=== PATIENT | male | born 1980 | race Caucasian/White ===

== ENCOUNTER 2020-07-05 01:23 | Inpatient (IN) | payer SELFPAY ==
[2020-07-05] MEDS ORDERED: VANCOMYCIN HCL INJ 1000 MG VIAL IV ONE (02:18)
[2020-07-05] MEDS ORDERED: CEFTRIAXONE 1 GM/D5W RTU 1 GM/50 ML RTUPB IV ONE (02:18)
[2020-07-05] MEDS ORDERED: MORPHINE SULFATE 10 MG/ML INJ IV ONE (02:21)
--- NOTE | 2020-07-05 02:35 | ER Document Report ---
ED General - General Chief Complaint: Hand Swelling Stated Complaint: SWOLLEN LEFT HAND Time Seen by Provider: 07/05/20 01:58 - HPI Notes: Patient is a 40-year-old male with no medical history who presents with left hand swelling that began 2 days ago. Patient reports swelling, redness and pressure-like pain to his left hand extending to his left midforearm. Patient denies any injury or wounds to his hand, except for a small scratch that he received from a screw last week. Patient denies fever, headache, chest pain, shortness of breath, nausea, vomiting, abdominal pain. Patient is a everyday smoker and smokes about 4 to 5 cigarettes a day. He denies alcohol and recreational drug use. - Related Data Allergies/Adverse Reactions: No Known Allergies Allergy (Unverified 08/10/11 15:28) Past Medical History - General Information source: Patient - Social History Smoking Status: Current Every Day Smoker Cigarette use (# per day): Yes - 4-5 Chew tobacco use (# tins/day): Yes Frequency of alcohol use: None Drug Abuse: None Family History: Reviewed & Not Pertinent Patient has homicidal ideation: No Past Surgical History: Reports: Hx Orthopedic Surgery - right tib/fib jasson - Immunizations Hx Diphtheria, Pertussis, Tetanus Vaccination: No - unknown Review of Systems - Review of Systems Constitutional: No symptoms reported EENT: No symptoms reported Cardiovascular: No symptoms reported Respiratory: No symptoms reported Gastrointestinal: No symptoms reported Genitourinary: No symptoms reported Male Genitourinary: No symptoms reported Musculoskeletal: See HPI Skin: No symptoms reported Hematologic/Lymphatic: No symptoms reported Neurological/Psychological: No symptoms reported Physical Exam - Vital signs Vitals: Temp Pulse Resp BP Pulse Ox 98.6 F 110 H 18 150/91 H 96 07/05/20 01:28 07/05/20 01:28 07/05/20 01:28 07/05/20 01:28 07/05/20 01:28 - Notes Notes: PHYSICAL EXAMINATION: VITALS: Vitals reviewed and within normal limits. GENERAL: Well-appearing, well-nourished and in no acute distress. HEAD: Atraumatic, normocephalic. EYES: Pupils equal, round, and reactive to light, extraocular movements intact, sclera anicteric, conjunctiva are normal. ENT: Nares patent. Moist mucous membranes. Oropharynx clear without exudates. NECK: Normal range of motion, supple without lymphadenopathy. LUNGS: Breath sounds clear to auscultation bilaterally and equal. No wheezes rales or rhonchi. HEART: Regular, rate, and rhythm without murmurs. ABDOMEN: Soft, nontender, normoactive bowel sounds. No guarding, no rebound. No masses appreciated. EXTREMITIES: Significant swelling and erythema to the entire left hand. Edema extending to the mid forearm. Warmth noted. Range of motion of the fingers and wrist are limited due to the swelling, but able to minimally extend and flex fi ngers. No drainage or weeping noted. No area of fluctuance noted. Normal range of motion, no pitting or edema to all other extremities. No cyanosis. NEUROLOGICAL: No focal neurological deficits. Moves all extremities spontaneously and on command. PSYCH: Normal mood, normal affect. SKIN: Warm, Dry, normal turgor, no rashes or lesions noted. Course - Re-evaluation Re-evalutation: Patient is a 40-year-old who presents with left hand pain, swelling and redness for the last 2 days. Patient is tachycardic but vitals are otherwise unremarkable. On exam, significantly erythematous and edematous left hand with minimal range of motion the fingers and wrist. Warmth noted. 2000 mg IV vancomycin started as well as 1 g IV ceftriaxone here in the ED. Left hand XR shows soft tissue edema while the left forearm XR shows dorsal soft tissue edema. WBC is elevated at 11.8. UA shows elevated protein at 30 and elevated urobilinogen at 4. AST elevated at 96 and ALT elevated at 209. 07/05/20 04:22 I called the hospital cellophane bag machine operator to page Dr. Soto who is on-call for Ortho. 07/05/20 04:[address] Soto concerning the patient and he recommends admitting the patient through the hospitalist for IV antibiotic treatment. He will consult on the patient. 07/05/20 04:[address] Goodwin, hospitalist and he agreed to accept the patient. Patient will be admitted for observation to the medical floor. - Vital Signs Vital signs: Temp Pulse Resp BP Pulse Ox 98.2 F 101 H 18 145/89 H 100 07/05/20 05:40 07/05/20 05:40 07/05/20 05:40 07/05/20 05:40 07/05/20 05:40 - Laboratory Result Diagrams: 07/05/20 02:38 07/05/20 02:38 Laboratory results interpreted by me: 07/05/20 07/05/20 07/05/20 02:38 02:38 03:30 WBC 11.8 H Absolute Neuts (auto) 8.3 H Sodium 136.1 L Carbon Dioxide 31 H Glucose 135 H Direct Bilirubin 0.5 H AST 96 H ALT 209 H Urine Protein 30 H Urine Urobilinogen 4.0 H Discharge - Discharge Clinical Impression: Cellulitis of hand, Left hand pain Condition: Stable Disposition: ADMITTED OBSERVATION Admitting Provider: Buddy (Hospitalist) Unit Admitted: Medical Floor
[2020-07-05 03:04] LABS: ABSOLUTE BASOPHILS # (AUTO) 0.1 10^3/uL (0.0-0.2); ABSOLUTE EOSINOPHILS # (AUTO) 0.2 10^3/uL (0.0-0.6); ABSOLUTE LYMPHOCYTES (AUTO) 2.2 10^3/uL (0.5-4.7); ABSOLUTE NEUT (AUTO) 8.3 10^3/uL (1.7-8.2); BASOPHILS % (AUTO) 0.5 % (0-2); EOSINOPHILS % (AUTO) 2.1 % (0-6); HEMATOCRIT 39.5 % (37.9-51.0); HEMOGLOBIN 13.7 g/dL (13.5-17.0); LYMPHOCYTES % (AUTO) 18.4 % (13-45); MEAN CORPUSCULAR HEMOGLOBIN 28.7 pg (27.0-33.4); MEAN CORPUSCULAR HGB CONC 34.8 g/dL (32.0-36.0); MEAN CORPUSCULAR VOLUME 82 fl (80-97); MONOCYTES % (AUTO) 8.4 % (3-13); PLATELET COUNT 250 10^3/uL (150-450); RED BLOOD COUNT 4.79 10^6/uL (4.35-5.55); RED CELL DISTRIBUTION WIDTH 13.7 % (11.5-14.0); SEGMENTED NEUTROPHILS % (AUTO) 70.6 % (42-78); TOTAL CELLS COUNTED % (AUTO) 100 %; WHITE BLOOD COUNT 11.8 10^3/uL (4.0-10.5)
--- NOTE | 2020-07-05 03:10 | RADIOLOGY REPORT (SQ) ---
EXAM DESCRIPTION: XR FOREARM 2 VIEWS COMPLETED DATE/TME: 07/05/2020 02:16 CLINICAL HISTORY: 40 years, Male, hand swelling, FB COMPARISON: None. FINDINGS: 2 views of the left forearm. No acute fracture or dislocation. Normal osseous mineralization. Dorsal soft tissue edema. No radiopaque foreign body. IMPRESSION: 1. No radiopaque foreign body identified. copyright 2010 [employer] All Rights Reserved
--- NOTE | 2020-07-05 03:11 | RADIOLOGY REPORT (SQ) ---
EXAM DESCRIPTION: XR HAND 1-2 VIEWS COMPLETED DATE/TME: 07/05/2020 02:16 CLINICAL HISTORY: 40 years, Male, hand swelling, FB COMPARISON: None. FINDINGS: 2 views of the left hand. Soft tissue edema. No radiopaque foreign body. No acute fracture. IMPRESSION: 1. No radiopaque foreign body. copyright 2010 [employer]- All Rights Reserved
[2020-07-05 04:00] LABS: APPEARANCE,URINE CLEAR; BILIRUBIN,URINE NEGATIVE (NEGATIVE); GLUCOSE, URINE NEGATIVE (NEGATIVE); KETONES,URINE NEGATIVE (NEGATIVE); LEUKOCYTE ESTERASE,URINE NEGATIVE (NEGATIVE); NITRITE,URINE NEGATIVE (NEGATIVE); PROTEIN,URINE 30 mg/dL (NEGATIVE); URINE SPECIFIC GRAVITY 1.028
[2020-07-05 04:01] LABS: COLOR,URINE YELLOW
[2020-07-05 04:10] LABS: ALBUMIN 4.2 g/dL (3.5-5.0); ALKALINE PHOSPHATASE 62 U/L (38-126); ANION GAP 6 (5-19); ASPARTATE AMINO TRANSFERASE 96 U/L (17-59); BILIRUBIN,DIRECT 0.5 mg/dL (0.0-0.4); BILIRUBIN,TOTAL 1.1 mg/dL (0.2-1.3); BLOOD UREA NITROGEN 15 mg/dL (7-20); CALCIUM 9.3 mg/dL (8.4-10.2); CARBON DIOXIDE 31 mmol/L (22-30); CHLORIDE 99 mmol/L (98-107); GLUCOSE 135 mg/dL (75-110); POTASSIUM 4.1 mmol/L (3.6-5.0); TOTAL PROTEIN 7.8 g/dL (6.3-8.2)
[2020-07-05] MEDS ORDERED: MAG HYDROX/AL HYDROX/SIMETH SUSP 30 ML UDCUP PO PRN (05:16)
[2020-07-05] MEDS ORDERED: LORAZEPAM INJ 2 MG/1 ML VIAL IV PRN (05:19)
[2020-07-05] MEDS ORDERED: GUAIFENESIN SYRP 200 MG/10 ML UDC PO PRN (05:19)
[2020-07-05] MEDS ORDERED: MORPHINE SULFATE 10 MG/ML INJ IV PRN (05:19)
[2020-07-05] MEDS ORDERED: MELATONIN 5 MG TABLET PO PRN (05:19)
[2020-07-05] MEDS ORDERED: ACETAMINOPHEN 325 MG TABLET PO PRN (05:19)
[2020-07-05] MEDS: HEPARIN SOD (PORCINE) 5,000 UNIT/ML 1 ML VIAL SUBCUT SCH ×3 (06:04→21:21)
[2020-07-05] MEDS: CEFEPIME 1 GM/D5W RTU 1 GM/50 ML RTUPB IV SCH ×2 (06:14→18:26)
[2020-07-05] MEDS ORDERED: NICOTINE 14 MG/24 HR PATCH.TD24 TD PRN (06:20)
--- NOTE | 2020-07-05 06:33 | PDOC H&P ---
History of Present Illness Admission Date/PCP: 07/05/2020 04:56 No local PCP Patient complains of: Left hand pain History of Present Illness: JOANNE RAGSDALE is a 40 year old male presents to the emergency room with a 2-day history of left hand pain. He admits gradually worsening pain accompanied by progressively worsening swelling and associated with progressively increasing redness in his left hand and fingers, now extending up to the mid forearm. His pain is a constant throbbing pressure of moderate to severe intensity worsened by movement or use of his left hand. He denies other associated or accompanying signs and symptoms. He has not identified any obvious source of infection but did scratch his left hand several days ago. He denies prior similar episodes. He has not identified any additional aggravating or ameliorating factors for his left hand pain. In the emergency room he was found to have a white blood count of 11,800. He was noted to be afebrile, but due to the extensive edema Dr. Soto was consulted and recommended admission. Patient was subsequently admitted to observation status for further evaluation treatment. Past Medical History Cardiac Medical History: Denies: Atrial Fibrillation, Coronary Artery Disease, DVT, Hyperlipidema, Hypertension, Peripheral Vascular Disease Pulmonary Medical History: Denies: Asthma, Chronic Obstructive Pulmonary Disease (COPD) EENT Medical History: Denies: Cataracts, Ears - Hearing aids Neurological Medical History: Denies: Multiple Sclerosis, Seizures Endocrine Medical History: Denies: Diabetes Mellitus Type 1, Diabetes Mellitus Type 2, Hyperthyroidism, Hypothyroidism Renal/ Medical History: Denies: Chronic Kidney Disease, Nephrolithiasis Malignancy Medical History: Reports: None GI Medical History: Denies: Cirrhosis, Hepatitis, Peptic Ulcer Disease Musculoskeltal Medical History: Denies: Arthritis, Gout Skin Medical History: Denies: Eczema, Psoriasis Psychiatric Medical History: Denies: Alcohol Dependency, Substance Abuse, Tobacco Dependency Traumatic Medical History: Reports: None Hematology: Denies: Anemia, Bleeding Tendencies Infectious Medical History: Reports: None Past Surgical History Past Surgical History: Reports: Orthopedic Surgery - right tib/fib fracture treated with intramedullary jasson Social History Information Source: Patient Lives with: Alone Smoking Status: Current Every Day Smoker - 1/4 pack per day Electronic Cigarette use?: No Frequency of Alcohol Use: Rare Hx Recreational Drug Use: No Drugs: None Hx Prescription Drug Abuse: No - Advance Directive Resuscitation Status: Full Code Surrogate healthcare decision maker:: Zoraida Schwarz Family History Family History: denies: CAD, DM, Hypertension, Malignancy Parental Family History Reviewed: Yes Children Family History Reviewed: No Sibling(s) Family History Reviewed.: Yes Medication/Allergy Home Medications: No Home Medications 07/05/20 Allergies/Adverse Reactions: No Known Allergies Allergy (Unverified 08/10/11 15:28) Review of Systems Constitutional: ABSENT: chills, fever(s) Eyes: ABSENT: visual disturbances, other - Eye pain Ears: ABSENT: hearing changes, other - Ear pain Nose, Mouth, and Throat: ABSENT: headache(s), sore throat Cardiovascular: ABSENT: chest pain, palpitations Respiratory: ABSENT: cough, dyspnea Gastrointestinal: ABSENT: abdominal pain, constipation, diarrhea, nausea, vomiting Musculoskeletal: PRESENT: as per HPI, other - Painful swelling with erythema of the left distal forearm, wrist, hand and fingers Integumentary: PRESENT: as per HPI, erythema. ABSENT: pruritus, rash, wounds Neurological: ABSENT: confusion, convulsions, focal weakness, memory loss, syncope Psychiatric: ABSENT: anxiety, depression Endocrine: ABSENT: cold intolerance, heat intolerance Hematologic/Lymphatic: ABSENT: easy bleeding, easy bruising Allergic/Immunologic: ABSENT: seasonal rhinorrhea Physical Exam Vital Signs: Temp Pulse Resp BP Pulse Ox 98.6 F 110 H 18 150/91 H 96 07/05/20 01:28 07/05/20 01:28 07/05/20 01:28 07/05/20 01:28 07/05/20 01:28 Intake & Output 07/03/20 07/04/20 07/05/20 23:59 23:59 23:59 Intake Total 50 Balance 50 Weight 105.3 kg General appearance: PRESENT: no acute distress, cooperative Head exam: ABSENT: atraumatic, normocephalic Eye exam: PRESENT: conjunctiva pink. ABSENT: conjunctival injection, scleral icterus Ear exam: PRESENT: normal external ear exam. ABSENT: bleeding, drainage Mouth exam: PRESENT: dry mucosa, neck supple Neck exam: ABSENT: thyromegaly, tracheal deviation Respiratory exam: PRESENT: clear to auscultation danis, symmetrical, unlabored Cardiovascular exam: PRESENT: RRR. ABSENT: clicks, gallop, rubs Pulses: PRESENT: normal radial pulses, normal dorsalis pedis pul Vascular exam: PRESENT: normal capillary refill. ABSENT: pallor GI/Abdominal exam: PRESENT: normal bowel sounds, soft. ABSENT: tenderness Rectal exam: PRESENT: deferred Extremities exam: PRESENT: other - Left hand and fingers with erythema and edema extending up to the mid forearm, noted local tenderness to palpation and decreased range of motion secondary to pain. ABSENT: joint swelling, pedal edema Musculoskeletal exam: ABSENT: deformity, dislocation Neurological exam: PRESENT: alert, oriented to person, oriented to place, oriented to time, oriented to situation, CN II-XII grossly intact. ABSENT: motor sensory deficit Psychiatric exam: PRESENT: appropriate affect, normal mood Skin exam: PRESENT: dry, intact, warm, other - See left hand cellulitis description above, multiple areas of folliculitis, secondary to body shaving, are noted within the area of erythema and edema it may well be potential sources of infection.. ABSENT: jaundice, rash, urticaria Results Laboratory Results: 07/05/20 02:38 07/05/20 02:38 07/05/20 07/05/20 07/05/20 02:38 02:38 03:30 WBC 11.8 H RBC 4.79 Hgb 13.7 Hct 39.5 MCV 82 MCH 28.7 MCHC 34.8 RDW 13.7 Plt Count 250 Seg Neutrophils % 70.6 Sodium 136.1 L Potassium 4.1 Chloride 99 Carbon Dioxide 31 H Anion Gap 6 BUN 15 Creatinine 0.65 Est GFR ( Amer) > 60 Glucose 135 H Calcium 9.3 Total Bilirubin 1.1 AST 96 H Alkaline Phosphatase 62 Total Protein 7.8 Albumin 4.2 Urine Color YELLOW Urine Appearance CLEAR Urine pH 5.0 Ur Specific [place] 1.028 Urine Protein 30 H Urine Glucose (UA) NEGATIVE Urine Ketones NEGATIVE Urine Blood NEGATIVE Urine Nitrite NEGATIVE Ur Leukocyte Esterase NEGATIVE Urine WBC (Auto) 1 Impressions: Forearm X-Ray 07/05/20 02:16 IMPRESSION: 1. No radiopaque foreign body identified. copyright 2010 [employer]- All Rights Reserved Hand X-Ray 07/05/20 02:16 IMPRESSION: 1. No radiopaque foreign body. copyright 2010 [employer]- All Rights Reserved Assessment and Plan - Diagnosis (1) Cellulitis of left hand Is this a current diagnosis for this admission?: Yes (2) Leukocytosis Qualifiers: Leukocytosis type: unspecified Qualified Code(s): D72.829 - Elevated white blood cell count, unspecified Is this a current diagnosis for this admission?: Yes (3) Left hand pain Is this a current diagnosis for this admission?: Yes (4) Tobacco use disorder, continuous Is this a current diagnosis for this admission?: Yes - Plan Summary Summary: Patient will be admitted on observation status to the medical floor where he will receive routine supportive and symptomatic cares. He will be treated with IV antibiotics utilizing cefepime and Zyvox. Dr. Soto was consulted for ongoing orthopedic evaluation. Patient will receive a regular diet. He will use morphine sulfate 2 to 4 mg IV every 2 hours as needed for pain. You use Ativan 1 mg IV every 4 hours as needed for anxiety or restlessness. Smoking cessation is advised and counseled briefly at the bedside. A nicotine patch is available for the patient's use, if desired. - Time Time Spent with patient: Less than 15 minutes Smoking Cessation Education: 3 to 10 minutes Medications reviewed and adjusted accordingly: No - No home meds Anticipated Discharge Disposition: Home, Self Care Anticipated Discharge Timeframe: within 36 hours - Inpatient Certification Based on my medical assessment, after consideration of the patient's comorbidities, presenting symptoms, or acuity I expect that the services needed warrant INPATIENT care.: No I certify that my determination is in accordance with my understanding of Medicare's requirements for reasonable and necessary INPATIENT services [42 CFR 412.3e].: No
[2020-07-05] MEDS: KETOROLAC TROMETHAMINE INJ/PF 30 MG/1 ML SDV IV PRN ×2 (08:50→16:40)
[2020-07-05] MEDS: DOCUSATE SODIUM 100 MG CAPSULE PO SCH ×2 (09:57→17:35)
[2020-07-05] MEDS: FAMOTIDINE 20 MG TABLET PO SCH ×2 (09:58→21:21)
[2020-07-05] MEDS: LINEZOLID 600 MG/300 ML RTUPB IV SCH ×2 (09:58→21:15)
--- NOTE | 2020-07-05 12:56 | PDOC CONSULTATION ---
Consultation Consult Date: 07/05/20 Attending physician:: KAE VELASQUEZ Provider Consulted: HECTOR ROGERS Consult reason:: Left hand cellulitis History of Present Illness Admission Date/PCP: 07/05/20 05:13 Patient complains of: Left hand and forearm pain, swelling, erythema. 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 He presented to the emergency department last evening with a 2-day history of worsening pain, swelling, and erythema of the left hand and forearm. The only trauma to the ext remity that he recalls is a superficial laceration to the thumb on a sharp screw while doing some plumbing work 5 days ago. He was started on broad-spectrum antibiotics last evening and already reports improved symptoms this morning. Past Medical History Cardiac Medical History: Denies: Atrial Fibrillation, Coronary Artery Disease, DVT, Hyperlipidema, Hy pertension, Peripheral Vascular Disease Pulmonary Medical History: Denies: Asthma, Chronic Obstructive Pulmonary Disease (COPD) EENT Medical History: Denies: Cataracts, Ears - Hearing aids Neurological Medical History: Denies: Multiple Sclerosis, Seizures Endocrine Medical History: Denies: Diabetes Mellitus Type 1, Diabetes Mellitus Type 2, Hyperthyroidism, Hypothyroidism Renal/ Medical History: Denies: Chronic Kidney Disease, Nephrolithiasis Malignancy Medical History: Reports: None GI Medical History: Denies: Cirrhosis, Hepatitis, Peptic Ulcer Disease Musculoskeltal Medical History: Denies: Arthritis, Gout Skin Medical History: Denies: Eczema, Psoriasis Psychiatric Medical History: Denies: Alcohol Dependency, Depression, Substance Abuse, Tobacco Dependency Traumatic Medical History: Reports: None Hematology: Denies: Anemia, Bleeding Tendencies Infectious Medical History: Reports: None Past Surgical History Past Surgical History: Reports: Orthopedic Surgery - right tib/fib fracture treated with intramedullary jasson Social History Lives with: Alone Smoking Status: Current Every Day Smoker - 1/4 pack per day Electronic Cigarette use?: No Frequency of Alcohol Use: Rare Hx Recreational Drug Use: No Drugs: None Hx Prescription Drug Abuse: No - Advance Directive Resuscitation Status: Full Code Family History Family History: denies: CAD, DM, Hypertension, Malignancy Parental Family History Reviewed: Yes Children Family History Reviewed: No Sibling(s) Family History Reviewed.: No Medication/Allergy Home Medications: No Home Medications 07/05/20 Allergies/Adverse Reactions: No Known Allergies Allergy (Unverified 08/10/11 15:28) Review of Systems All systems: reviewed and no additional remarkable complaints except as stated - As per HPI Physical Exam Vital Signs: Temp Pulse Resp BP Pulse Ox 98.4 F 78 18 134/77 H 100 07/05/20 07:51 07/05/20 05:59 07/05/20 05:59 07/05/20 05:59 07/05/20 05:59 Intake & Output 07/04/20 07/05/20 07/06/20 06:59 06:59 06:59 Intake Total 100 300 Balance 100 300 Weight 100.1 kg General appearance: PRESENT: no acute distress, well-developed, well-nourished Head exam: PRESENT: atraumatic, normocephalic Mouth exam: PRESENT: moist, tongue midline Neck exam: PRESENT: full ROM Respiratory exam: PRESENT: clear to auscultation danis. ABSENT: rales, rhonchi, wheezes Cardiovascular exam: PRESENT: RRR. ABSENT: diastolic murmur, rubs, systolic m urmur GI/Abdominal exam: PRESENT: normal bowel sounds, soft. ABSENT: distended, guarding, mass, organolmegaly, rebound, tenderness Rectal exam: PRESENT: deferred Musculoskeletal exam: PRESENT: other - There is moderate swelling of the left hand with several small pustular lesions most consistent with a staphylococcal infection. The patient is able to actively flex and extend the digits. There is no discomfort with full passive extension of any digit. There is no palpable abscess of the hand or forearm. Erythema and swelling of the forearm have decreased since admission as confirmed by the patient as well as a line drawn by the emergency room physician. Results Laboratory Results: 07/05/20 02:38 07/05/20 02:38 07/05/20 07/05/20 07/05/20 02:38 02:38 03:30 WBC 11.8 H RBC 4.79 Hgb 13.7 Hct 39.5 MCV 82 MCH 28.7 MCHC 34.8 RDW 13.7 Plt Count 250 Seg Neutrophils % 70.6 Sodium 136.1 L Potassium 4.1 Chloride 99 Carbon Dioxide 31 H Anion Gap 6 BUN 15 Creatinine 0.65 Est GFR ( Amer) > 60 Glucose 135 H Calcium 9.3 Total Bilirubin 1.1 AST 96 H Alkaline Phosphatase 62 Total Protein 7.8 Albumin 4.2 Urine Color YELLOW Urine Appearance CLEAR Urine pH 5.0 Ur Specific [place] 1.028 Urine Protein 30 H Urine Glucose (UA) NEGATIVE Urine Ketones NEGATIVE Urine Blood NEGATIVE Urine Nitrite NEGATIVE Ur Leukocyte Esterase NEGATIVE Urine WBC (Auto) 1 Impressions: Forearm X-Ray 07/05/20 02:16 IMPRESSION: 1. No radiopaque foreign body identified. copyright 2010 [employer]- All Rights Reserved Hand X-Ray 07/05/20 02:16 IMPRESSION: 1. No radiopaque foreign body. copyright 2010 [employer]- All Rights Reserved Assessment & Plan - Diagnosis (1) Cellulitis of left hand Is this a current diagnosis for this admission?: Yes - Time Time Spent: 30 to 50 Minutes Anticipated discharge: Home Anticipated DC Timeframe: within 48 hours - Plan Summary Plan Summary: The patient symptoms are consistent with cellulitis. There is no clinical indication of abscess or tendon sheath infection. The patient has made marked improvement with just several hours of broad-spectrum antibiotics. Would continue antibiotics until symptoms resolve. Please reconsult if the patient's symptoms change specifically if he should develop some type of abscess while under antibiotic treatment.
[2020-07-06] MEDS: CEFEPIME 1 GM/D5W RTU 1 GM/50 ML RTUPB IV SCH ×2 (06:11→18:11)
[2020-07-06] MEDS: KETOROLAC TROMETHAMINE INJ/PF 30 MG/1 ML SDV IV PRN ×3 (06:14→21:35)
[2020-07-06] MEDS: HEPARIN SOD (PORCINE) 5,000 UNIT/ML 1 ML VIAL SUBCUT SCH ×3 (06:24→21:32)
[2020-07-06 06:32] LABS: HEMATOCRIT 35.5 % (37.9-51.0); HEMOGLOBIN 12.6 g/dL (13.5-17.0); MEAN CORPUSCULAR HEMOGLOBIN 28.8 pg (27.0-33.4); MEAN CORPUSCULAR HGB CONC 35.5 g/dL (32.0-36.0); MEAN CORPUSCULAR VOLUME 81 fl (80-97); PLATELET COUNT 187 10^3/uL (150-450); RED BLOOD COUNT 4.39 10^6/uL (4.35-5.55); RED CELL DISTRIBUTION WIDTH 13.5 % (11.5-14.0)
[2020-07-06] MEDS: LINEZOLID 600 MG/300 ML RTUPB IV SCH ×2 (10:30→21:34)
[2020-07-06] MEDS: DOCUSATE SODIUM 100 MG CAPSULE PO SCH ×2 (10:30→18:12)
[2020-07-06] MEDS: FAMOTIDINE 20 MG TABLET PO SCH ×2 (10:30→21:35)
--- NOTE | 2020-07-06 14:24 | PDOC PROGRESS REPORT ---
Subjective Progress Note for:: 07/06/20 Subjective:: No adverse events overnight. No new complaints. Vital signs have been stable. He seems to be sleeping most of the time. Afebrile. Reason For Visit: CELLULITIS, LEFT HAND AND FINGERS Physical Exam Vital Signs: Temp Pulse Resp BP Pulse Ox 98.1 F 69 16 118/80 96 07/06/20 11:27 07/06/20 11:27 07/06/20 11:27 07/06/20 11:27 07/06/20 11:27 Intake & Output 07/05/20 07/06/20 07/07/20 06:59 06:59 06:59 Intake Total 100 2036 907 Balance 100 2036 907 Weight 100.1 kg 100.1 kg 103.5 kg General appearance: PRESENT: no acute distress, cooperative, disheveled Respiratory exam: PRESENT: clear to auscultation danis, symmetrical, unlabored. ABSENT: accessory muscle use, chest wall tenderness, crackles, prolonged expiratory phas, rhonchi, tachypnea, wheezes Cardiovascular exam: PRESENT: RRR, +S1, +S2 Pulses: PRESENT: normal carotid pulses Vascular exam: PRESENT: normal capillary refill GI/Abdominal exam: PRESENT: normal bowel sounds, soft. ABSENT: distended, guarding, rebound, tenderness Extremities exam: PRESENT: other - Left hand swelling, minimal upper extremity erythema. ABSENT: clubbing, pedal edema Musculoskeletal exam: PRESENT: normal inspection. ABSENT: deformity Neurological exam: PRESENT: awake - Drowsy but arousable, oriented to person, oriented to place, oriented to situation Psychiatric exam: PRESENT: flat affect Skin exam: PRESENT: dry, warm Results Laboratory Results: 07/06/20 06:17 07/05/20 02:38 07/06/20 06:17 WBC 8.0 RBC 4.39 Hgb 12.6 L Hct 35.5 L MCV 81 MCH 28.8 MCHC 35.5 RDW 13.5 Plt Count 187 Impressions: Forearm X-Ray 07/05/20 02:16 IMPRESSION: 1. No radiopaque foreign body identified. copyright 2010 [employer] All Rights Reserved Hand X-Ray 07/05/20 02:16 IMPRESSION: 1. No radiopaque foreign body. copyright 2010 [employer]- All Rights Reserved Assessment and Plan - Diagnosis (1) Cellulitis of left hand Is this a current diagnosis for this admission?: Yes (2) Tobacco use disorder, continuous Is this a current diagnosis for this admission?: Yes - Plan Summary Summary: We will continue current antibiotic treatment. He has been seen by orthopedics and it seems that there is no indication for any sort of surgical intervention. No evidence of any abscess development. Blood cultures have been negative. We will continue with the current treatment and then consider switching him over to an oral antibiotic so that he can go home, possibly in a couple of days. - Time Time Spent with patient: 15-24 minutes Anticipated Discharge Disposition: Home, Self Care Anticipated Discharge Timeframe: within 72 hours
[2020-07-07] MEDS: KETOROLAC TROMETHAMINE INJ/PF 30 MG/1 ML SDV IV PRN (03:56)
[2020-07-07] MEDS: HEPARIN SOD (PORCINE) 5,000 UNIT/ML 1 ML VIAL SUBCUT SCH ×3 (05:42→21:07)
[2020-07-07] MEDS: CEFEPIME 1 GM/D5W RTU 1 GM/50 ML RTUPB IV SCH ×2 (05:43→17:24)
[2020-07-07] MEDS: LINEZOLID 600 MG/300 ML RTUPB IV SCH ×2 (09:31→21:12)
[2020-07-07] MEDS: DOCUSATE SODIUM 100 MG CAPSULE PO SCH ×2 (09:31→17:30)
[2020-07-07] MEDS: FAMOTIDINE 20 MG TABLET PO SCH ×2 (09:31→21:11)
[2020-07-07] MEDS: PROMETHAZINE HCL INJ 25 MG/1 ML VIAL IV PRN ×2 (14:07→21:12)
[2020-07-07] MEDS: OXYCODONE-ACETAMINOPHEN 5-325 MG TABLET PO PRN (17:24)
--- NOTE | 2020-07-07 19:24 | PDOC PROGRESS REPORT ---
Subjective Progress Note for:: 07/07/20 Subjective:: Patient is a 40-year-old male with a past medical history of substance abuse; admitted to heroin use today. He was admitted 07/05/2020 with Left hand cellulitis. Patient was seen on morning rounds. He is found resting in bed, comfortably, on room air. He reports continued hand discomfort, although, notes that the erythema and edema have improved. He does continue to have significant edema to his left hand but with full range of motion of his fingers and wrist. He also complains of nausea related to the IV Toradol and requests increased pain medication. He denies fever, chest pain, palpitations, dyspnea, abdominal pain, emesis and diarrhea. Has no other questions or concerns at this time. No concerns per nursing. Reason For Visit: CELLULITIS HAND Physical Exam Vital Signs: Temp Pulse Resp BP Pulse Ox 98.2 F 102 H 17 147/90 H 98 07/07/20 16:02 07/07/20 16:02 07/07/20 16:02 07/07/20 16:02 07/07/20 16:02 Intake & Output 07/06/20 07/07/20 07/08/20 06:59 06:59 06:59 Intake Total 2035 1916 930 Balance 2035 Weight 100.1 kg 102.8 kg General appearance: PRESENT: no acute distress, disheveled, well-developed, well-nourished Head exam: PRESENT: atraumatic, normocephalic Eye exam: PRESENT: conjunctiva pink, EOMI, PERRLA. ABSENT: scleral icterus Mouth exam: PRESENT: moist, tongue midline Teeth exam: PRESENT: poor dentation Respiratory exam: PRESENT: clear to auscultation danis, symmetrical, unlabored, other - Room air. ABSENT: rales, rhonchi, wheezes Cardiovascular exam: PRESENT: RRR, +S1, +S2. ABSENT: diastolic murmur, rubs, systolic murmur Vascular exam: PRESENT: normal capillary refill Extremities exam: PRESENT: full ROM, other - Left hand swelling, slight erythema to posterior surface of left hand. ABSENT: calf tenderness, clubbing, pedal edema Neurological exam: PRESENT: alert, awake, oriented to person, oriented to place, oriented to time, oriented to situation, CN II-XII grossly intact. ABSENT: motor sensory deficit Psychiatric exam: PRESENT: appropriate affect, normal mood. ABSENT: homicidal ideation, suicidal ideation Skin exam: PRESENT: dry, warm. ABSENT: cyanosis, rash Results Laboratory Results: 07/06/20 06:17 07/05/20 02:38 Impressions: Forearm X-Ray 07/05/20 02:16 IMPRESSION: 1. No radiopaque foreign body identified. copyright 2010 [employer]- All Rights Reserved Hand X-Ray 07/05/20 02:16 IMPRESSION: 1. No radiopaque foreign body. copyright 2010 [employer]- All Rights Reserved Assessment and Plan - Diagnosis (1) Cellulitis of left hand Is this a current diagnosis for this admission?: Yes Plan: Blood cultures negative at 48 hours Orthopedics was consulted; nonsurgical at this time. Recommend antibiotic therapy. He was empirically placed on IV Zyvox and cefepime. No known history of MRSA, although, patient does now admit to IV heroin use. We will plan on discontinuing Zyvox tomorrow if blood cultures remain negative with normal WBC and continued clinical improvement. May be able to transition to oral cephalosporin the following day and discharged home. Keep extremity elevated. Analgesics as needed. 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 Cessation encouraged. Observe for evidence of withdrawal. Patient is noted to be mildly tachycardic and hypertensive. Percocet every 6 hours as needed Antiemetics as needed. (3) Tobacco use disorder, continuous Is this a current diagnosis for this admission?: Yes Plan: Smoking cessation encouraged. Nicotine replacement therapies provided. - Time Time Spent with patient: 25-34 minutes Medications reviewed and adjusted accordingly: Yes Anticipated Discharge Disposition: Home, Self Care Anticipated Discharge Timeframe: within 48 hours
[2020-07-07] MEDS: CLONIDINE HCL 0.1 MG TABLET PO SCH (21:11)
[2020-07-07] MEDS: MELATONIN 5 MG TABLET PO PRN (21:13)
[2020-07-08] MEDS: HEPARIN SOD (PORCINE) 5,000 UNIT/ML 1 ML VIAL SUBCUT SCH ×3 (05:20→21:48)
[2020-07-08] MEDS: CEFEPIME 1 GM/D5W RTU 1 GM/50 ML RTUPB IV SCH (05:22)
[2020-07-08 08:19] LABS: HEMOGLOBIN 12.7 g/dL (13.5-17.0); MEAN CORPUSCULAR HEMOGLOBIN 28.6 pg (27.0-33.4); MEAN CORPUSCULAR HGB CONC 35.2 g/dL (32.0-36.0); MEAN CORPUSCULAR VOLUME 81 fl (80-97); PLATELET COUNT 219 10^3/uL (150-450); RED BLOOD COUNT 4.44 10^6/uL (4.35-5.55); RED CELL DISTRIBUTION WIDTH 13.5 % (11.5-14.0); WHITE BLOOD COUNT 5.4 10^3/uL (4.0-10.5)
[2020-07-08 08:36] LABS: ALBUMIN 3.4 g/dL (3.5-5.0); ALKALINE PHOSPHATASE 58 U/L (38-126); ANION GAP 8 (5-19); ASPARTATE AMINO TRANSFERASE 56 U/L (17-59); BILIRUBIN,DIRECT 0.3 mg/dL (0.0-0.4); BILIRUBIN,TOTAL 0.5 mg/dL (0.2-1.3); BLOOD UREA NITROGEN 8 mg/dL (7-20); CARBON DIOXIDE 25 mmol/L (22-30); CHLORIDE 106 mmol/L (98-107); GLUCOSE 92 mg/dL (75-110); POTASSIUM 3.9 mmol/L (3.6-5.0); TOTAL PROTEIN 6.8 g/dL (6.3-8.2)
[2020-07-08] MEDS: DOCUSATE SODIUM 100 MG CAPSULE PO SCH ×2 (09:39→18:12)
[2020-07-08] MEDS: OXYCODONE-ACETAMINOPHEN 5-325 MG TABLET PO PRN ×2 (09:39→18:12)
[2020-07-08] MEDS: FAMOTIDINE 20 MG TABLET PO SCH ×2 (09:40→21:49)
[2020-07-08] MEDS: SULFAMETHOXAZOLE/TRIMETHOPRIM 800-160 MG TABLET PO SCH ×2 (11:58→18:12)
--- NOTE | 2020-07-08 19:40 | PDOC PROGRESS REPORT ---
Subjective Progress Note for:: 07/08/20 Subjective:: Patient is a 40-year-old male with a past medical history of IVDU and tobacco dependence. He was admitted 07/05/2020 with Left hand cellulitis. Patient was seen on morning rounds. He is found resting in bed, comfortably, on room air. He reports continued hand discomfort, although, notes that the erythema and edema have improved. He denies fever, chest pain, palpitations, dyspnea, abdominal pain, emesis and diarrhea. Has no other questions or concerns at this time. No concerns per nursing. Reason For Visit: CELLULITIS HAND Physical Exam Vital Signs: Temp Pulse Resp BP Pulse Ox 98.3 F 66 16 138/95 H 94 07/08/20 15:12 07/08/20 15:12 07/08/20 15:12 07/08/20 15:12 07/08/20 15:12 Intake & Output 07/07/20 07/08/20 07/09/20 06:59 06:59 06:59 Intake Total 19160 1661 Balance 1916 2199 1661 Weight 102.8 kg 99 kg 98.8 kg General appearance: PRESENT: no acute distress, cooperative, well-developed, we ll-nourished - Overweight Head exam: PRESENT: atraumatic, normocephalic Eye exam: PRESENT: conjunctiva pink, EOMI, PERRLA. ABSENT: scleral icterus Mouth exam: PRESENT: moist, tongue midline Teeth exam: PRESENT: poor dentation Respiratory exam: PRESENT: clear to auscultation danis, symmetrical, unlabored. ABSENT: rales, rhonchi, wheezes Cardiovascular exam: PRESENT: RRR. ABSENT: diastolic murmur, rubs, systolic murmur Vascular exam: PRESENT: normal capillary refill Extremities exam: PRESENT: full ROM, tenderness, other - Left hand swelling is improved; now primarily to the posterior aspect of the hand at the fifth metacarpal. erythema has resolved. ABSENT: calf tenderness, clubbing, pedal e josef Neurological exam: PRESENT: alert, awake, oriented to person, oriented to place, oriented to time, oriented to situation, CN II-XII grossly intact. ABSENT: motor sensory deficit Psychiatric exam: PRESENT: appropriate affect, normal mood. ABSENT: homicidal ideation, suicidal ideation Skin exam: PRESENT: dry, warm. ABSENT: cyanosis, rash Results Laboratory Results: 07/08/20 07:48 07/08/20 07:48 07/08/20 07/08/20 07:48 07:48 WBC 5.4 RBC 4.44 Hgb 12.7 L Hct 36.0 L MCV 81 MCH 28.6 MCHC 35.2 RDW 13.5 Plt Count 219 Sodium 139.3 Potassium 3.9 Chloride 106 Carbon Dioxide 25 Anion Gap 8 BUN 8 Creatinine 0.65 Est GFR ( Amer) > 60 Glucose 92 Calcium 9.0 Total Bilirubin 0.5 AST 56 Alkaline Phosphatase 58 Total Protein 6.8 Albumin 3.4 L Impressions: Forearm X-Ray 07/05/20 02:16 IMPRESSION: 1. No radiopaque foreign body identified. copyright 2010 [employer] All Rights Reserved Hand X-Ray 07/05/20 02:16 IMPRESSION: 1. No radiopaque foreign body. copyright 2010 [employer] All Rights Reserved Assessment and Plan - Diagnosis (1) Cellulitis of left hand Is this a current diagnosis for this admission?: Yes Plan: Blood cultures negative at 72 hours Patient reports a history of MRSA. Orthopedics was consulted; nonsurgical at this time. Recommend antibiotic therapy. He was empirically placed on IV Zyvox and cefepime; transition to p.o. Bactrim today. Keep extremity elevated. Analgesics as needed. Encourage gentle range of motion We will plan on discharging tomorrow if he has continued clinical improvement. 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 Cessation encouraged. Observe for evidence of withdrawal. Patient is noted to be mildly tachycardic and hypertensive. Percocet every 6 hours as needed Antiemetics as needed. (3) Tobacco use disorder, continuous Is this a current diagnosis for this admission?: Yes Plan: Smoking cessation encouraged. Nicotine replacement therapies provided. - Time Time Spent with patient: 25-34 minutes Medications reviewed and adjusted accordingly: Yes Anticipated Discharge Disposition: Home, Self Care Anticipated Discharge Timeframe: within 24 hours
[2020-07-08] MEDS: CLONIDINE HCL 0.1 MG TABLET PO SCH (21:49)
[2020-07-08] MEDS: MELATONIN 5 MG TABLET PO PRN (21:50)
[2020-07-09] MEDS: HEPARIN SOD (PORCINE) 5,000 UNIT/ML 1 ML VIAL SUBCUT SCH (05:14)
[2020-07-09] MEDS: DOCUSATE SODIUM 100 MG CAPSULE PO SCH (09:48)
[2020-07-09] MEDS: FAMOTIDINE 20 MG TABLET PO SCH (09:48)
[2020-07-09] MEDS: SULFAMETHOXAZOLE/TRIMETHOPRIM 800-160 MG TABLET PO SCH (09:48)
[2020-07-09] MEDS ORDERED: LISINOPRIL 10 MG TABLET PO SCH (10:00)
[2020-07-09 10:58] LABS: HEMOGLOBIN 14.1 g/dL (13.5-17.0); MEAN CORPUSCULAR HEMOGLOBIN 28.4 pg (27.0-33.4); MEAN CORPUSCULAR HGB CONC 35.4 g/dL (32.0-36.0); MEAN CORPUSCULAR VOLUME 80 fl (80-97); PLATELET COUNT 218 10^3/uL (150-450); RED BLOOD COUNT 4.98 10^6/uL (4.35-5.55); RED CELL DISTRIBUTION WIDTH 13.4 % (11.5-14.0); WHITE BLOOD COUNT 6.5 10^3/uL (4.0-10.5)
[2020-07-09 12:38] VITALS: BP 133/94
--- NOTE | 2020-07-11 15:59 | PDOC DISCHARGE SUMMARY ---
Impression - Admit/DC Date/PCP Admission Date/Primary Care Provider: 07/05/20 05:13 Discharge Date: 07/09/20 - Discharge Diagnosis (1) Cellulitis of left hand Is this a current diagnosis for this admission?: Yes (2) Substance abuse Is this a current diagnosis for this admission?: Yes (3) Tobacco use disorder, continuous Is this a current diagnosis for this admission?: Yes - Additional Information Resuscitation Status: Full Code Discharge Diet: Regular Discharge Activity: Activity As Tolerated, Balance Activity w/Rest, Slowly Increase Activity Referrals: [facility] [Outside] - 07/21/20 10:00 am (WITH HARIKA SALEEM. CLINIC WILL CALL PATIENT. IF ANY PHONE NUMBER CHANGES PLEASE NOTIFY CLINIC) Prescriptions: Nicotine [Nicoderm 14 mg/24 Hr Transdermal Patch] 1 each TD DAILYP PRN #30 patch.td24 PRN Reason: Oxycodone HCl/Acetaminophen [Percocet 5-325 mg Tablet] 1 tab PO Q6HP PRN #14 tablet PRN Reason: Lisinopril [Prinivil] 20 mg PO DAILY #30 tablet Sulfamethoxazole/Trimethoprim [Septra-Ds 800-160 mg Tablet] 1 tab PO BID #20 tablet Home Medications: Acetaminophen [Tylenol 325 mg Tablet] 650 mg PO Q4HP PRN tablet 07/09/20 Lisinopril [Prinivil] 20 mg PO DAILY #30 tablet 07/09/20 Nicotine [Nicoderm 14 mg/24 Hr Transdermal Patch] 1 each TD DAILYP PRN #30 patch.td24 07/09/20 Oxycodone HCl/Acetaminophen [Percocet 5-325 mg Tablet] 1 tab PO Q6HP PRN #14 tablet 07/09/20 Sulfamethoxazole/Trimethoprim [Septra-Ds 800-160 mg Tablet] 1 tab PO BID #20 tablet 07/09/20 History of Present Illiness History of Present Illness: Per H&P by Dr. Goodwin: JOANNE RAGSDALE is a 40 year old male presents to the emergency room with a 2-day history of left hand pain. He admits gradually worsening pain accompanied by progressively worsening swelling and associated with progressively increasing redness in his left hand and fingers, now extending up to the mid forearm. His pain is a constant throbbing pressure of moderate to severe intensity worsened by movement or use of his left hand. He denies other associated or accompanying signs and symptoms. He has not identified any obvious source of infection but did scratch his left hand several days ago. He denies prior similar episodes. He has not identified any additional aggravating or ameliorating factors for his left hand pain. In the emergency room he was found to have a white blood count of 11,800. He was noted to be afebrile, but due to the extensive edema Dr. Soto was consulted and recommended admission. Patient was subsequently admitted to observation status for further evaluation treatment. Hospital Course Hospital Course: (1) Cellulitis of left hand Blood cultures negative at 5 days Patient reports a history of MRSA. Orthopedics was consulted; nonsurgical at this time. Recommend antibiotic therapy. He was empirically placed on IV Zyvox and cefepime; transition to p.o. Bactrim today. Monitored x24 additional hours; continued to demonstrate clear clinical improvement with further reduction in edema and discomfort. Encourage gentle range of motion He is discharged home with Rx for Bactrim to complete a total 14 day course of antibiotic therapy. (2) Substance abuse Patient admitted to nursing that he is a regular heroin user for the last 18 years. Cessation encouraged. No evidence for withdrawal during this admission. (3) Tobacco use disorder, continuous Smoking cessation encouraged. Nicotine replacement therapies provided. Physical Exam Vital Signs: Temp Pulse Resp BP Pulse Ox 98.9 F 74 17 145/89 H 100 07/09/20 11:46 07/09/20 11:46 07/09/20 11:46 07/09/20 11:46 07/09/20 11:46 Intake & Output 07/10/20 07/11/20 07/12/20 06:59 06:59 06:59 Intake Total 457 Balance 457 Weight 98.8 kg General appearance: PRESENT: no acute distress, well-developed, well-nourished, other - overweight Head exam: PRESENT: atraumatic, normocephalic Eye exam: PRESENT: conjunctiva pink, EOMI, PERRLA. ABSENT: scleral icterus Mouth exam: PRESENT: moist, tongue midline Respiratory exam: PRESENT: clear to auscultation danis, symmetrical, unlabored. ABSENT: rales, rhonchi, wheezes Cardiovascular exam: PRESENT: RRR, +S1, +S2. ABSENT: diastolic murmur, rubs, sy stolic murmur Vascular exam: PRESENT: normal capillary refill Extremities exam: PRESENT: full ROM, other - Left hand swelling is significantly improved. erythema has resolved. ABSENT: calf tenderness, clubbing, pedal edema Musculoskeletal exam: PRESENT: ambulatory Neurological exam: PRESENT: alert, awake, oriented to person, oriented to place, oriented to time, oriented to situation, CN II-XII grossly intact. ABSENT: motor sensory deficit Psychiatric exam: PRESENT: appropriate affect, normal mood. ABSENT: homicidal ideation, suicidal ideation Skin exam: PRESENT: dry, intact, warm. ABSENT: cyanosis, rash Results Laboratory Results: WBC 6.5 10^3/uL (4.0-10.5) 07/09/20 10:34 RBC 4.98 10^6/uL (4.35-5.55) 07/09/20 10:34 Hgb 14.1 g/dL (13.5-17.0) 07/09/20 10:34 Hct 40.0 % (37.9-51.0) 07/09/20 10:34 MCV 80 fl (80-97) 07/09/20 10:34 MCH 28.4 pg (27.0-33.4) 07/09/20 10:34 MCHC 35.4 g/dL (32.0-36.0) 07/09/20 10:34 RDW 13.4 % (11.5-14.0) 07/09/20 10:34 Plt Count 218 10^3/uL (150-450) 07/09/20 10:34 Lymph % (Auto) 18.4 % (13-45) 07/05/20 02:38 Benzie % (Auto) 8.4 % (3-13) 07/05/20 02:38 Eos % (Auto) 2.1 % (0-6) 07/05/20 02:38 Baso % (Auto) 0.5 % (0-2) 07/05/20 02:38 Absolute Neuts (auto) 8.3 10^3/uL (1.7-8.2) H 07/05/20 02:38 Absolute Lymphs (auto) 2.2 10^3/uL (0.5-4.7) 07/05/20 02:38 Absolute Monos (auto) 1.0 10^3/uL (0.1-1.4) 07/05/20 02:38 Absolute Eos (auto) 0.2 10^3/uL (0.0-0.6) 07/05/20 02:38 Absolute Basos (auto) 0.1 10^3/uL (0.0-0.2) 07/05/20 02:38 Seg Neutrophils % 70.6 % (42-78) 07/05/20 02:38 Platelet Estimate Cancelled 07/09/20 09:30 Sodium 139.3 mmol/L (137-145) 07/08/20 07:48 Potassium 3.9 mmol/L (3.6-5.0) 07/08/20 07:48 Chloride 106 mmol/L (98-107) 07/08/20 07:48 Carbon Dioxide 25 mmol/L (22-30) 07/08/20 07:48 Anion Gap 8 (5-19) 07/08/20 07:48 BUN 8 mg/dL (7-20) 07/08/20 07:48 Creatinine 0.65 mg/dL (0.52-1.25) 07/08/20 07:48 Est GFR ( Amer) > 60 (>60) 07/08/20 07:48 Est GFR (MDRD) Non-Af > 60 (>60) 07/08/20 07:48 Glucose 92 mg/dL (75-110) 07/08/20 07:48 Calcium 9.0 mg/dL (8.4-10.2) 07/08/20 07:48 Total Bilirubin 0.5 mg/dL (0.2-1.3) 07/08/20 07:48 Direct Bilirubin 0.3 mg/dL (0.0-0.4) 07/08/20 07:48 Neonat Total Bilirubin Not Reportable 07/08/20 07:48 Neonat Direct Bilirubin Not Reportable 07/08/20 07:48 Neonat Indirect Bili Not Reportable 07/08/20 07:48 AST 56 U/L (17-59) 07/08/20 07:48 ALT 113 U/L (<50) H 07/08/20 07:48 Alkaline Phosphatase 58 U/L (38-126) 07/08/20 07:48 Total Protein 6.8 g/dL (6.3-8.2) 07/08/20 07:48 Albumin 3.4 g/dL (3.5-5.0) L 07/08/20 07:48 Urine Color YELLOW 07/05/20 03:30 Urine Appearance CLEAR 07/05/20 03:30 Urine pH 5.0 (5.0-9.0) 07/05/20 03:30 Ur Specific [place] 1.028 07/05/20 03:30 Urine Protein 30 mg/dL (NEGATIVE) H 07/05/20 03:30 Urine Glucose (UA) NEGATIVE mg/dL (NEGATIVE) 07/05/20 03:30 Urine Ketones NEGATIVE mg/dL (NEGATIVE) 07/05/20 03:30 Urine Blood NEGATIVE (NEGATIVE) 07/05/20 03:30 Urine Nitrite NEGATIVE (NEGATIVE) 07/05/20 03:30 Urine Bilirubin NEGATIVE (NEGATIVE) 07/05/20 03:30 Urine Urobilinogen 4.0 mg/dL (<2.0) H 07/05/20 03:30 Ur Leukocyte Esterase NEGATIVE (NEGATIVE) 07/05/20 03:30 Urine WBC (Auto) 1 /HPF 07/05/20 03:30 Urine Mucus (Auto) MANY /LPF 07/05/20 03:30 Urine Ascorbic Acid NEGATIVE (NEGATIVE) 07/05/20 03:30 Slides for Path Review Cancelled 07/09/20 09:30 Impressions: Forearm X-Ray 07/05/20 02:16 IMPRESSION: 1. No radiopaque foreign body identified. copyright 2010 [employer]- All Rights Reserved Hand X-Ray 07/05/20 02:16 IMPRESSION: 1. No radiopaque foreign body. copyright 2011 [employer]- All Rights Reserved Plan Plan of Treatment: Patient is discharged home in stable condition. He is advised to follow-up with his primary care provider within 1 week. Complete full course of antibiotic therapy. He is strongly encourage to discontinue IVDU. Return to the emergency department as needed for concerning symptoms. Time Spent: Greater than 30 Minutes Stroke Is this a Stroke Patient?: No Acute Heart Failure Is this a Heart Failure Patient?: No
== END 2020-07-09 12:30 | disposition home or self-care (01) | DRG 603 ==
LOC: ER 01:23 → EH 05:13 → OBSVTOIN 05:13 → INTOOBSV 05:13 → UNDOADMOB 05:13 → EH 06:06 → 4S 06:06 → EH 07-07 14:37 → 4S 07-07 14:37 → OBSVTOIN 07-07 14:37 → UNDODISIN 07-09 12:30
PROVIDERS: ADMIT Emergency Medicine; ATTEND Registered Nurse
DX: L03.114 Cellulitis of left upper limb (principal); F11.10 Opioid abuse, uncomplicated; D72.829 Elevated white blood cell count, unspecified; F17.210 Nicotine dependence, cigarettes, uncomplicated; Z82.49 Family history of ischemic heart disease and other diseases of the circulatory system; Z83.3 Family history of diabetes mellitus; Z80.9 Family history of malignant neoplasm, unspecified; Z71.51 Drug abuse counseling and surveillance of drug abuser; Z86.14 Personal history of Methicillin resistant Staphylococcus aureus infection
CPT/HCPCS: 36415; 80053; 81001; 85025; 85027; 87040; 96365; 96366; 96367; 96375; 99285; G0378; J0692; J0696; J1885; J2020; J2270; J2550; J3370; J3490